=== PATIENT | female | born 1960 | race Caucasian/White ===

== ENCOUNTER 2021-01-26 09:58 | Emergency (ER) | payer MEDICAID ==
[~2021-01-26] VITALS: Ht 162.6 cm; Wt 91.0 kg
[2021-01-26] MEDS ORDERED: KETOROLAC 15MG/ML VIAL IV ONE (10:30)
[2021-01-26] MEDS ORDERED: MORPHINE SULFATE 4 MG/ML CPJ (NOT FOR IM USE) IV PRN (10:30)
[2021-01-26] MEDS ORDERED: MORPHINE SULFATE 10 MG/ML CPJ IV ONE (10:30)
[2021-01-26 10:52] LABS: BASOPHILS % 0.4 % (0.0-2.0); EOSINOPHILS % 0.8 % (0.0-5.0); HEMATOCRIT. 41.3 % (36.0-48.0); LYMPHOCYTES % 20.3 % (20.0-50.0); MEAN CORPUSCULAR HEMOGLOBIN 30.3 pg (28.0-32.0); MEAN CORPUSCULAR VOLUME 89.2 fL (81.0-99.0); MEAN PLATELET VOLUME 8.5 fl (7.4-10.4); MONOCYTES % 6.7 % (2.0-8.0); NEUTROPHILS % 71.8 % (40.0-76.0); PLATELET 258 x1000/uL (130-400); RED BLOOD CELL COUNT 4.63 mill/uL (4.2-5.4); RED CELL DISTRIBUTION WIDTH 13.9 % (11.6-14.6)
[2021-01-26 10:57] LABS: CHLORIDE 99 mEq/L (98-107)
[2021-01-26 11:02] LABS: CLARITY URINE CLEAR (CLEAR); COLOR URINE YELLOW (YELLOW); KETONES URINE NEGATIVE (NEGATIVE); LEUKOCYTE ESTERASE URINE TRACE (NEGATIVE); NITRITE URINE NEGATIVE (NEGATIVE); OCCULT BLOOD URINE NEGATIVE (NEGATIVE); PROTEIN URINE NEGATIVE (NEGATIVE); SPECIFIC GRAVITY URINE 1.006 (1.005-1.030); UROBILINOGEN URINE 0.2 E.U./dL (0.2-1.0)
[2021-01-26] MEDS ORDERED: AMOX-424 MT (15:39)
[2021-01-26 15:56] VITALS: BP 150/78
== END 2021-01-26 16:03 | disposition home or self-care (01) ==
LOC: ER 10:39
DX: R10.9 Unspecified abdominal pain (principal); E11.9 Type 2 diabetes mellitus without complications; I10 Essential (primary) hypertension; Z90.710 Acquired absence of both cervix and uterus
CPT/HCPCS: 36415; 74176; 80048; 80076; 81003; 83690; 85025; 85379; 93005; 96374; 99285; J2270; Z7610

== ENCOUNTER 2021-09-12 02:10 | Emergency (ER) | payer MEDICAID ==
[~2021-09-12] VITALS: Ht 162.6 cm; Wt 91.0 kg
[~2021-09-12 02:10] MED LIST: AMOX-424 MT
[2021-09-12] MEDS ORDERED: KETOROLAC 60MG/2ML VIAL IM ONE (03:15)
[2021-09-12 03:22] VITALS: BP 147/66
== END 2021-09-12 05:03 | disposition home or self-care (01) ==
LOC: ER 02:10
DX: I63.541 Cerebral infarction due to unspecified occlusion or stenosis of right cerebellar artery (principal); I10 Essential (primary) hypertension; E11.9 Type 2 diabetes mellitus without complications; Z88.6 Allergy status to analgesic agent; Z88.5 Allergy status to narcotic agent; Z98.890 Other specified postprocedural states; Z85.3 Personal history of malignant neoplasm of breast
CPT/HCPCS: 70450; 96372; 99284; J1885

== ENCOUNTER 2022-03-22 17:44 | Emergency (ER) | payer MEDICAID, OTHER ==
[~2022-03-22] VITALS: Ht 162.6 cm; Wt 91.0 kg
[2022-03-22 21:30] VITALS: BP 188/80
[2022-03-22] MEDS ORDERED: KETOROLAC 30MG/ML VIAL IM ONE (21:30)
[2022-03-22] MEDS ORDERED: CYCLOBENZAPRINE 10MG TABLET PO ONE (21:30)
== END 2022-03-23 03:48 | disposition home or self-care (01) ==
LOC: ER 17:44
DX: G89.29 Other chronic pain (principal); M54.2 Cervicalgia; I10 Essential (primary) hypertension; E11.9 Type 2 diabetes mellitus without complications; Z86.73 Personal history of transient ischemic attack (TIA), and cerebral infarction without residual deficits; Z85.3 Personal history of malignant neoplasm of breast; Z90.10 Acquired absence of unspecified breast and nipple; Z88.6 Allergy status to analgesic agent
CPT/HCPCS: 71045; 96372; 99283; J1885

== ENCOUNTER 2024-07-28 21:30 | Emergency (ER) | payer BC, MEDICAID, OTHER ==
[~2024-07-28] VITALS: Ht 162.6 cm; Wt 91.0 kg
[2024-07-28 21:38] VITALS: O2SAT 100
[2024-07-28] MEDS: CYCLOBENZAPRINE 10MG TABLET PO ONE (23:00)
[2024-07-28] MEDS ORDERED: IBUP-2029 MT (23:48)
[2024-07-29] VITALS: BP 157/66; PULSE 84; RESP 17; TEMP 36.61404; O2SAT 99
== END 2024-07-29 | disposition home or self-care (01) ==
LOC: ER 21:30
DX: S30.0XXA Contusion of lower back and pelvis, initial encounter (principal); S09.90XA Unspecified injury of head, initial encounter; E11.9 Type 2 diabetes mellitus without complications; I10 Essential (primary) hypertension; Z86.73 Personal history of transient ischemic attack (TIA), and cerebral infarction without residual deficits; Z85.3 Personal history of malignant neoplasm of breast; W18.39XA Other fall on same level, initial encounter; Y93.89 Activity, other specified; Y92.89 Other specified places as the place of occurrence of the external cause; Y99.8 Other external cause status
CPT/HCPCS: 72131; 99284

== ENCOUNTER 2024-09-25 15:16 | Emergency (ER) | payer BC, MEDICAID ==
[~2024-09-25] VITALS: Ht 162.6 cm; Wt 88.4 kg
[~2024-09-25 15:16] MED LIST changes: +IBUP-2029 MT
[2024-09-25 15:32] VITALS: TEMP 98.4; O2SAT 96
[2024-09-25 18:24] LABS: CHLORIDE 104 mEq/L (98-107); POTASSIUM 4.1 mEq/L (3.5-5.1); SODIUM 140 mEq/L (136-145)
[2024-09-25 18:25] LABS: CARBON DIOXIDE 30 mEq/L (21-32)
[2024-09-25 18:26] LABS: BASOPHILS % 0.3 % (0.0-2.0); EOSINOPHILS % 1.5 % (0.0-5.0); HEMATOCRIT. 42.2 % (36.0-48.0); HEMOGLOBIN. 14.4 g/dL (12.0-16.0); LYMPHOCYTES % 31.5 % (20.0-50.0); MEAN CORPUSCULAR HEMOGLOBIN 31.1 pg (28.0-32.0); MEAN CORPUSCULAR VOLUME 91.5 fL (81.0-99.0); MEAN PLATELET VOLUME 7.8 fl (7.4-10.4); MONOCYTES % 7.1 % (2.0-8.0); NEUTROPHILS % 59.6 % (40.0-76.0); PLATELET 309 x1000/uL (130-400); RED BLOOD CELL COUNT 4.61 mill/uL (4.2-5.4); RED CELL DISTRIBUTION WIDTH 13.7 % (11.6-14.6); WHITE BLOOD COUNT 10.1 x1000/uL (4.5-11.0)
[2024-09-25 18:30] LABS: CREATININE 0.8 mg/dL (0.6-1.0); GLUCOSE 98 mg/dL (70-105)
[2024-09-25 18:31] LABS: UREA NITROGEN BLOOD 12 mg/dL (9-23)
[2024-09-25 18:54] LABS: PROTHROMBIN TIME 10.9 sec (9.6-11.0)
[2024-09-25] MEDS: IBUPROFEN 600MG TABLET PO ONE (19:08)
[2024-09-25 19:44] LABS: CLARITY URINE CLEAR (CLEAR); COLOR URINE YELLOW (YELLOW); GLUCOSE URINE NEGATIVE (NEGATIVE); KETONES URINE NEGATIVE (NEGATIVE); LEUKOCYTE ESTERASE URINE NEGATIVE (NEGATIVE); NITRITE URINE NEGATIVE (NEGATIVE); OCCULT BLOOD URINE NEGATIVE (NEGATIVE); PH URINE 6.5 (4.5-8.0); PROTEIN URINE NEGATIVE (NEGATIVE); SPECIFIC GRAVITY URINE 1.004 (1.005-1.030); UROBILINOGEN URINE 0.2 E.U./dL (0.2-1.0)
[2024-09-25] MEDS ORDERED: IOHEXOL-300 100 ML BOTTLE ONE (21:07)
[2024-09-25] MEDS ORDERED: AMOX1TAB16 MT (22:42)
[2024-09-25] MEDS: HYDROCODONE/ACETAMINOPHEN 5/325MG TABLET PO ONE (23:34)
[2024-09-25 23:36] VITALS: BP 148/81; PULSE 86; RESP 20; O2SAT 97
[2024-09-25] MEDS ORDERED: IOHEXOL-350 100 ML BOTTLE ONE (23:42)
== END 2024-09-25 23:38 | disposition home or self-care (01) ==
LOC: ER 15:16
DX: R10.84 Generalized abdominal pain (principal); E11.9 Type 2 diabetes mellitus without complications; I10 Essential (primary) hypertension; Z98.82 Breast implant status; Z85.3 Personal history of malignant neoplasm of breast
CPT/HCPCS: 80048; 81003; 82962; 83690; 85025; 85610; 36415; 74177; 99285; Q9967 ×2; Z7610